=== PATIENT | male | born 2000 | race Caucasian/White ===

== ENCOUNTER 2018-10-04 19:45 | Emergency (ER) | payer SELFPAY ==
[~2018-10-04] VITALS: Ht 180.3 cm; Wt 81.6 kg
[2018-10-04 19:53] VITALS: BP_SYST 131
--- NOTE | 2018-10-04 19:59 | NUR ---
Patient to ER bed 4 for evaluation. Side rails up. Report given to Elizabeth TORO.
--- NOTE | 2018-10-04 20:00 | NUR ---
Patient AAO x4 sitting in bed c/o rash to hands and body. Patients states he took benadryl over the counter with no relief. No complaints of SOB or respiratory distress. Sitting at bedside no acute distress noted. Will continue to monitor.
--- NOTE | 2018-10-04 20:10 | NUR ---
ER at bedside examining patient.
[2018-10-04 20:48] VITALS: BP_SYST 135
--- NOTE | 2018-10-04 20:48 | NUR ---
Patient given written and verbal discharge instructions and verbalizes understanding. ER MD Dr. Preston discussed with patient the results and treatment provided prior to discharge. Patient in stable condition. ID arm band removed. Rx of betamethasone cream and Medrol dosepak given. Patient educated on pain management and to follow up with PMD. Pain Scale 0/10 . Opportunity for questions provided and answered. Medication side effect fact sheet provided.
== END 2018-10-04 20:48 | disposition home or self-care (01) ==
LOC: SED 19:45
DX: T78.40XA Allergy, unspecified, initial encounter (principal); X58.XXXA Exposure to other specified factors, initial encounter
CPT/HCPCS: 99283